=== PATIENT | female | born 1975 | race American Indian/Alaskan Native ===

== ENCOUNTER 2017-02-13 14:53 | Emergency (ER) | payer MEDICAID, OTHER ==
[2017-02-13 15:06] VITALS: BP 126/79; PULSE 76; RESP 16; TEMP 98.5; O2SAT 99
[2017-02-13] MEDS ORDERED: HYDROmorphone 0.5 mg/0.5 ml ISec IM STA (15:20)
--- NOTE | 2017-02-13 15:20 | C.PDOC ---
History Of Present Illness 41 year old female presents to the ED with complaints of exacerbated bilateral lower back pain for two and a half weeks with onset following a slip and fall on the floor. Pain is exacerbated by movement and radiates to right buttock. Patient notes a history of sciatica and prior admission for the same complaints. She states she has followed up with neurologist and received "two shots in the back" with resolution of pain until recent fall. Time Seen by Provider: 02/13/17 15:11 Chief Complaint (Nursing): Back Pain History Per: Patient History/Exam Limitations: no limitations Onset/Duration Of Symptoms: Persistent (2 and a half weeks following slip and fall ) Current Symptoms Are (Timing): Still Present Quality Of Discomfort: "Pain" Previous Symptoms: Other (Sciatica ) Exacerbating Factor(s): Movement Recent travel outside of the [place]: No Past Medical History Reviewed: Historical Data, Nursing Documentation, Vital Signs Vital Signs: Last Vital Signs Temp 98.5 F 02/13/17 15:03 Pulse 76 02/13/17 15:03 Resp 16 02/13/17 15:03 BP 126/79 02/13/17 15:03 Pulse Ox 99 02/13/17 15:20 - Medical History PMH: Back Problems (started one month ago, work injury) Family History: States: Unknown Family Hx - Social History Hx Alcohol Use: No Hx Substance Use: No - Immunization History Hx Tetanus Toxoid Vaccination: Yes Hx Influenza Vaccination: Yes Hx Pneumococcal Vaccination: No Review Of Systems Constitutional: Negative for: Fever, Chills Cardiovascular: Negative for: Chest Pain Respiratory: Negative for: Shortness of Breath Gastrointestinal: Negative for: Vomiting Musculoskeletal: Positive for: Back Pain, Other (right buttock pain ) Physical Exam - Physical Exam Appears: Non-toxic, In Acute Distress (mild distress ) Skin: Warm, Dry Head: Atraumatic Eye(s): bilateral: Normal Inspection, PERRL, EOMI Oral Mucosa: Moist Neck: Supple Chest: Symmetrical, No Deformity Cardiovascular: Rhythm Regular Respiratory: Normal Breath Sounds, No Rhonchi, No Wheezing Back: No CVA Tenderness, No Vertebral Tenderness, Decreased ROM (limited full extension due to pain ), No Paraspinal Tenderness Extremity: Normal ROM, No Tenderness Neurological/Psych: Oriented x3, Normal Speech, Normal Cognition, Normal Cranial Nerves, Normal Motor, Normal Sensation, Normal Reflexes Gait: Steady ED Course And Treatment O2 Sat by Pulse Oximetry: 99 (room air ) Disposition Counseled Patient/Family Regarding: Diagnosis, Need For Followup, Rx Given - Disposition Referrals: YOUR,PMD [Other] Disposition: HOME/ ROUTINE Disposition Time: 15:19 Condition: IMPROVED Prescriptions: oxyCODONE/Acetaminophen [Percocet 5/325 mg Tab] 1 ea PO QID #8 tab Instructions: Sciatica (ED) Forms: Work Excuse - Clinical Impression Clinical Impression: Sciatica - Scribe Statement The provider has reviewed the documentation as recorded by the Scribe Dori Cadena All medical record entries made by the Yovannyibtereso were at my direction and personally dictated by me. I have reviewed the chart and agree that the record accurately reflects my personal performance of the history, physical exam, medical decision making, and the department course for this patient. I have also personally directed, reviewed, and agree with the discharge instructions and disposition.
== END 2017-02-13 15:29 | disposition home or self-care (01) ==
LOC: C.ER 14:53
DX: M54.31 Sciatica, right side (principal)

== ENCOUNTER 2017-06-03 09:15 | Emergency (ER) | payer MEDICAID ==
[2017-06-03 09:24] VITALS: BMI 27.3
[2017-06-03 09:29] VITALS: BP 138/93; PULSE 70; RESP 17; TEMP 98.5; O2SAT 100
[2017-06-03 09:54] LABS: RBC URINE < 1 /hpf (0-3); URINE BACTERIA RARE (<OCC); URINE BILIRUBIN NEGATIVE (NEGATIVE); URINE BLOOD 1+ (NEGATIVE); URINE COLOR Yellow (YELLOW); URINE GLUCOSE (UA) NORMAL (Normal); URINE KETONE NEGATIVE (NEGATIVE); URINE LEUKOCYTE ESTERASE NEG Leu/uL (Negative); URINE PROTEIN NEGATIVE (NEGATIVE); URINE UROBILINOGEN NORMAL mg/dL (0.2-1.0); WBC URINE 1 /hpf (0-5)
--- NOTE | 2017-06-03 10:02 | C.PDOC ---
History Of Present Illness 42 yo female come in for evaluation of lower abdominal cramping for past 2 days associated with frequent urination., Pt sts, last LMP was 04/11/17. Otherwise, pt denies fever, chills, recent illness, sore throat, CP, SOB, cough, N/V/D, melena , back pain, hematuria, vaginal irritation or discharges. Pt denies hx of ectopic . Ambulate to Ed for evaluation, not in any apparent distress. Time Seen by Provider: 06/03/17 09:27 Chief Complaint (Nursing): Abdominal Pain History Per: Patient History/Exam Limitations: no limitations Onset/Duration Of Symptoms: Days (2) Current Symptoms Are (Timing): Still Present Past Medical History Reviewed: Historical Data, Nursing Documentation, Vital Signs Vital Signs: Last Vital Signs Temp 98.5 F 06/03/17 09:25 Pulse 70 06/03/17 09:25 Resp 17 06/03/17 09:25 BP 138/93 H 06/03/17 09:25 Pulse Ox 100 06/03/17 10:10 - Medical History PMH: Back Problems (started one month ago, work injury) Family History: States: No Known Family Hx - Social History Hx Alcohol Use: No Hx Substance Use: No - Immunization History Hx Tetanus Toxoid Vaccination: Yes Hx Influenza Vaccination: Yes Hx Pneumococcal Vaccination: No Review Of Systems Except As Marked, All Systems Reviewed And Found Negative. Constitutional: Negative for: Fever, Chills ENT: Negative for: Throat Pain Cardiovascular: Negative for: Chest Pain Respiratory: Negative for: Cough, Shortness of Breath Gastrointestinal: Positive for: Abdominal Pain (Lower abdominal cramping). Negative for: Nausea, Vomiting, Diarrhea, Melena Genitourinary: Positive for: Frequency (Urinary frequency). Negative for: Hematuria, Vaginal Discharge Musculoskeletal: Negative for: Back Pain Physical Exam - Physical Exam Appears: Well, Non-toxic, No Acute Distress Skin: Normal Color, Warm, Dry, No Rash Eye(s): bilateral: PERRL Nose: No Flaring, No Discharge Oral Mucosa: Moist Throat: No Erythema, No Exudate, No Drooling Neck: Supple Cardiovascular: Rhythm Regular, No Murmur, No JVD Respiratory: No Decreased Breath Sounds, No Accessory Muscle Use, No Stridor, No Wheezing Gastrointestinal/Abdominal: Soft, Tenderness (mild spurapubic tenderness), No Distention, No Guarding, No Rebound Back: No CVA Tenderness Extremity: Normal ROM, No Pedal Edema, No Deformity Neurological/Psych: Oriented x3, Normal Speech ED Course And Treatment - Laboratory Results Urine POC: Negative O2 Sat by Pulse Oximetry: 100 (RA) Pulse Ox Interpretation: Normal Progress Note: On re-eval, pt is afebrile, hemodynamicaly stable. Non-toxic. Tolerate Po well in ED. PulseOx 100% RA. ENT: no acute findings. neck: Supple. Lungs: CTA B/L, Bs equal B/L>. CVS: (+)S1S2, reg. ABd: benign, (-) guarding, (-) rebound, (-) localized tenderness. back: (-) CVA tenderness. Preg (-). UA results review and appears normal. Pt has clinical findings c/w lower abdominal cramping,nos. Pt advised. ref. to f/u with STONE BREAKER in 2-3 days for re-eval. return to ED if any worsening or new changes. Medical Decision Making Medical Decision Making: PLAN: * HCG * Urinalysis Disposition Counseled Patient/Family Regarding: Studies Performed, Diagnosis, Need For Followup - Disposition [facility] Disposition: HOME/ ROUTINE Disposition Time: 10:04 Condition: STABLE Additional Instructions: Encourage fluids Follow up with GY In 2-3 days for re-evaluation. Return to ED if any worsening or new changes. Instructions: Abdominal Pain (ED) Forms: [employer] (Tongan) - Clinical Impression Clinical Impression: Abdominal pain - PA / SYSTEM SUPPORT DEVELOPER / Resident Statement MD/DO has reviewed & agrees with the documentation as recorded. - Scribe Statement The provider has reviewed the documentation as recorded by the Scribe Maryanne Blancas All medical record entries made by the Scribe were at my direction and personally dictated by me. I have reviewed the chart and agree that the record accurately reflects my personal performance of the history, physical exam, medical decision making, and the department course for this patient. I have also personally directed, reviewed, and agree with the discharge instructions and disposition.
== END 2017-06-03 10:15 | disposition home or self-care (01) ==
LOC: C.ER 09:15
DX: R10.9 Unspecified abdominal pain (principal)

== ENCOUNTER 2017-06-27 10:28 | Emergency (ER) | payer MEDICAID ==
[2017-06-27 10:28] VITALS: BMI 27.3
[2017-06-27 10:40] VITALS: O2SAT 100
[2017-06-27] MEDS ORDERED: Sodium Chloride 0.9% 1,000 ML IV ONE (10:55)
[2017-06-27] MEDS ORDERED: Sodium Chloride 0.9% 1,000 ML ONE (11:09)
[2017-06-27 11:20] LABS: BASO % 0.8 % (0.0-2.0); EOS # 0.1 K/uL (0.0-0.7); EOS % 1.1 % (0.0-4.0); HEMATOCRIT 32.4 % (34.0-47.0); LYMPH # 2.1 K/uL (1.0-4.3); LYMPH % 38.6 % (20.0-40.0); MEAN CELL VOLUME 82.7 fL (81.0-99.0); MEAN CORPUSCULAR HEMOGLOBIN 26.7 pg (27.0-31.0); MEAN CORPUSCULAR HGB CONC 32.3 g/dL (33.0-37.0); MEAN PLATELET VOLUME 9.1 fL (7.2-11.7); MONO # 0.4 K/uL (0.0-0.8); MONO % 7.5 % (0.0-10.0); RED CELL DISTRIBUTION WIDTH 14.4 % (11.5-14.5); WHITE BLOOD COUNT 5.4 K/uL (4.8-10.8)
[2017-06-27 11:22] LABS: ALB/GLOB RATIO 1.4 (1.0-2.1); ALKALINE PHOSPHATASE 42 U/L (38-126); ALT/SGPT 24 U/L (9-52); AST/SGOT 19 U/L (14-36); BILIRUBIN,TOTAL 0.7 mg/dL (0.2-1.3); BLOOD UREA NITROGEN 10 mg/dL (7-17); CALCIUM 8.6 mg/dl (8.6-10.4); CARBON DIOXIDE 23 mmol/L (22-30); CHLORIDE 104 mmol/L (98-107); GFR AFRICAN-AMERICAN > 60; GLUCOSE,RANDOM 76 mg/dL (65-105); POTASSIUM 3.3 mmol/L (3.6-5.2); SODIUM 137 mmol/L (132-148); TOTAL PROTEIN 7.2 g/dL (6.3-8.3)
--- NOTE | 2017-06-27 11:47 | C.PDOC ---
History Of Present Illness 42-year-old female, presents to the emergency department with complaints of feeling light-headed, that is associated with headache, that started yesterday. Patient states symptoms worsened this morning, while she was at work, resulting in her coming to the ED for evaluation. Patient notes that she started a diet two months ago, and did not have breakfast this morning, but this is typical for her. Denies nausea/vomiting, fevers, chills, chest pain, shortness of breath , weakness/numbness, change in vision/hearing, or any other associated symptoms. No other complaints at this time. Time Seen by Provider: 06/27/17 10:36 Chief Complaint (Nursing): Dizziness/Lightheaded History Per: Patient History/Exam Limitations: no limitations Onset/Duration Of Symptoms: Days Current Symptoms Are (Timing): Still Present Past Medical History Reviewed: Historical Data, Nursing Documentation, Vital Signs Vital Signs: Last Vital Signs Temp 98.5 F 06/27/17 10:37 Pulse 61 06/27/17 11:12 Resp 17 06/27/17 11:12 BP 128/81 06/27/17 11:12 Pulse Ox 100 06/27/17 12:09 - Medical History PMH: Back Problems (started one month ago, work injury) Family History: States: No Known Family Hx - Social History Hx Alcohol Use: No Hx Substance Use: No - Immunization History Hx Tetanus Toxoid Vaccination: No Hx Influenza Vaccination: No Hx Pneumococcal Vaccination: No Review Of Systems Except As Marked, All Systems Reviewed And Found Negative. Constitutional: Negative for: Fever, Chills Cardiovascular: Negative for: Chest Pain, Palpitations Respiratory: Negative for: Shortness of Breath Musculoskeletal: Negative for: Neck Pain, Back Pain Neurological: Positive for: Headache, Other (light-headed). Negative for: Weakness, Numbness Physical Exam - Physical Exam Appears: Non-toxic, No Acute Distress, Other (Mild discomfort) Skin: Warm, Dry, No Rash Head: Atraumatic, Normacephalic Eye(s): bilateral: Normal Inspection, PERRL Nose: Normal Oral Mucosa: Moist Lips: Normal Appearing Neck: Normal ROM Chest: Symmetrical Cardiovascular: Rhythm Regular, No Murmur Respiratory: Normal Breath Sounds, No Accessory Muscle Use Extremity: Normal ROM Neurological/Psych: Oriented x3, Normal Speech, Normal Cranial Nerves, Normal Motor, Normal Sensation, Other (No focal deficit) ED Course And Treatment - Laboratory Results Result Diagrams: 06/27/17 11:07 06/27/17 11:07 ECG: Interpreted By Me, Viewed By Me ECG Rhythm: Sinus Rhythm ECG Interpretation: No Acute Changes Interpretation Of ECG: Normal axis. Normal intervals. Rate From EC O2 Sat by Pulse Oximetry: 100 (on RA) Pulse Ox Interpretation: Normal Progress Note: EKG, bloodwork and UA ordered/reviewed. Patient given IVFs. Disposition Counseled Patient/Family Regarding: Studies Performed, Diagnosis, Need For Followup, Rx Given - Disposition Referrals: Иван Sheffield MD [Staff Provider] - Disposition: HOME/ ROUTINE Disposition Time: 13:05 Condition: STABLE Additional Instructions: FOLLOW UP WITH YOUR DOCTOR IN 1-2 DAYS DRINK PLENTY OF FLUIDS EAT REGULARLY USE MEDICATION UNTIL FINISHED RETURN TO ER IF SYMPTOMS WORSEN Prescriptions: Ciprofloxacin [Cipro] 1 tab PO BID #14 tab Instructions: Urinary Tract Infection in Women (ED) Forms: [employer] (Pashto) Print Language: BOLIVIAN - POA Present On Arrival: None - Clinical Impression Clinical Impression: Lightheaded, Hypokalemia, UTI (urinary tract infection) - Scribe Statement The provider has reviewed the documentation as recorded by the Scribe (Abdirahman Kang) All medical record entries made by the Scribe were at my direction and personally dictated by me. I have reviewed the chart and agree that the record accurately reflects my personal performance of the history, physical exam, medical decision making, and the department course for this patient. I have also personally directed, reviewed, and agree with the discharge instructions and disposition.
[2017-06-27 11:53] LABS: THYROID STIMULATING HORMONE 0.83 mIU/L (0.46-4.68)
[2017-06-27] MEDS ORDERED: Potassium Chloride 20 mEq ER Tab PO STA (12:16)
[2017-06-27] MEDS ORDERED: Potassium Chloride 20 mEq ER Tab PO ONE (12:21)
[2017-06-27 12:55] LABS: RBC URINE < 1 /hpf (0-3); URINE BACTERIA MANY (<OCC); URINE BILIRUBIN NEGATIVE (NEGATIVE); URINE BLOOD 1+ (NEGATIVE); URINE COLOR Yellow (YELLOW); URINE GLUCOSE (UA) NORMAL (Normal); URINE KETONE NEGATIVE (NEGATIVE); URINE LEUKOCYTE ESTERASE NEG Leu/uL (Negative); URINE PROTEIN NEGATIVE (NEGATIVE); URINE UROBILINOGEN NORMAL mg/dL (0.2-1.0)
[2017-06-27 12:58] LABS: WBC URINE 5 /hpf (0-5)
[2017-06-27 13:19] VITALS: BP 132/87; PULSE 70; RESP 20; TEMP 99.2
== END 2017-06-27 14:02 | disposition home or self-care (01) ==
LOC: C.ER 10:28
DX: R42 Dizziness and giddiness (principal); E87.6 Hypokalemia; N39.0 Urinary tract infection, site not specified
CPT/HCPCS: 80053; 81001; 82948; 84443; 84484; 84703; 85025; 96360; 99285; J7040

== ENCOUNTER 2018-01-23 11:00 | Emergency (ER) | payer MEDICAID ==
[2018-01-23 11:07] VITALS: BMI 24.3
[2018-01-23 11:10] VITALS: RESP 16; TEMP 98.9
[2018-01-23] MEDS ORDERED: Sodium Chloride 0.9% 1,000 ML IV ONE (11:40)
[2018-01-23] MEDS ORDERED: Sodium Chloride 0.9% 1,000 ML ONE (11:49)
[2018-01-23 11:54] LABS: BASO # 0.1 K/uL (0.0-0.2); BASO % 1.1 % (0.0-2.0); HEMOGLOBIN 10.5 g/dL (11.0-16.0); LYMPH # 2.2 K/uL (1.0-4.3); LYMPH % 45.5 % (20.0-40.0); MEAN CELL VOLUME 82.1 fL (81.0-99.0); MEAN CORPUSCULAR HEMOGLOBIN 27.2 pg (27.0-31.0); MEAN CORPUSCULAR HGB CONC 33.2 g/dL (33.0-37.0); MEAN PLATELET VOLUME 9.4 fL (7.2-11.7); MONO # 0.5 K/uL (0.0-0.8); MONO % 9.5 % (0.0-10.0); NEUT # 2.1 K/uL (1.8-7.0); NEUT % 42.9 % (50.0-75.0); NRBC % 0.1 % (0.0-2.0); RBC 3.85 Mil/uL (3.80-5.20); RED CELL DISTRIBUTION WIDTH 13.5 % (11.5-14.5); WHITE BLOOD COUNT 4.8 K/uL (4.8-10.8)
[2018-01-23 11:54] LABS: HCG,QUALITATIVE URINE NEGATIVE (NEGATIVE)
[2018-01-23 12:04] LABS: SQUAMOUS EPITHIAL 27 /hpf (0-5); URINE BACTERIA RARE (<OCC); URINE BILIRUBIN NEGATIVE (NEGATIVE); URINE BLOOD 3+ (NEGATIVE); URINE CLARITY Hazy (Clear); URINE COLOR Amber (YELLOW); URINE GLUCOSE (UA) NORMAL (Normal); URINE LEUKOCYTE ESTERASE NEG Leu/uL (Negative); URINE PROTEIN 1+ mg/dL (NEGATIVE); URINE UROBILINOGEN NORMAL mg/dL (0.2-1.0)
[2018-01-23 12:07] LABS: ALB/GLOB RATIO 1.2 (1.0-2.1); ALBUMIN 4.2 g/dL (3.5-5.0); ALT/SGPT 18 U/L (9-52); AST/SGOT 19 U/L (14-36); BLOOD UREA NITROGEN 11 mg/dL (7-17); CALCIUM 9.4 mg/dl (8.6-10.4); GFR AFRICAN-AMERICAN > 60; GFR NON-AFRICAN AMERICAN > 60
--- NOTE | 2018-01-23 13:53 | C.PDOC ---
History Of Present Illness 42 year old female presents to ED for evaluation of pelvic cramping since yesterday and vaginal bleeding that started today. Pt states she typically doesn 't have cramps with her period, and her vaginal bleeding is currently heavier than her typical menstrual flow. Pt thinks she may be and having miscarriage. She denies n/v/d, dysuria, vaginal discharge or concern for STDs. LMP: 12/23/17. Time Seen by Provider: 01/23/18 11:02 Chief Complaint (Nursing): Abdominal Pain History Per: Patient History/Exam Limitations: no limitations Onset/Duration Of Symptoms: Days (1) Current Symptoms Are (Timing): Still Present Severity: Mild Location Of Pain/Discomfort: Suprapubic Radiation Of Pain To:: None Quality Of Discomfort: Cramping Associated Symptoms: denies: Chest Pain, Constipation, Urinary Symptoms Exacerbating Factors: None Abnormal Vaginal Bleeding: Yes Past Medical History Reviewed: Historical Data, Nursing Documentation, Vital Signs Vital Signs: Last Vital Signs Temp 98.9 F 01/23/18 14:57 Pulse 86 01/23/18 14:57 Resp 16 01/23/18 14:57 BP 121/83 01/23/18 14:57 Pulse Ox 99 01/28/18 13:23 - Medical History PMH: Back Problems (started one month ago, work injury) Family History: States: No Known Family Hx - Social History Hx Alcohol Use: No Hx Substance Use: No - Immunization History Hx Tetanus Toxoid Vaccination: Yes Hx Influenza Vaccination: Yes Hx Pneumococcal Vaccination: No Review Of Systems Constitutional: Negative for: Fever, Chills Gastrointestinal: Negative for: Nausea, Vomiting, Diarrhea, Constipation Genitourinary: Positive for: Vaginal Bleeding, Pelvic Pain. Negative for: Dysuria, Frequency Musculoskeletal: Negative for: Back Pain Physical Exam - Physical Exam Appears: Well, Non-toxic, No Acute Distress Skin: Normal Color, Warm, Dry Eye(s): bilateral: Normal Inspection Oral Mucosa: Moist Neck: Supple Cardiovascular: Rhythm Regular Respiratory: Normal Breath Sounds, No Rales, No Rhonchi, No Wheezing Gastrointestinal/Abdominal: Bowel Sounds, Soft, Tenderness (suprapubic mild TTP , (-) McBurney's), No Guarding, No Rebound Back: No CVA Tenderness Extremity: Normal ROM Neurological/Psych: Oriented x3 ED Course And Treatment - Laboratory Results Result Diagrams: 01/23/18 11:51 01/23/18 11:51 O2 Sat by Pulse Oximetry: 99 (RA) Pulse Ox Interpretation: Normal - CT Scan/US Pelvis ultrasound Other Rad Studies (CT/US): Read By Radiologist, Radiology Report Reviewed CT/US Interpretation: Accession No. : [id number]. Patient Name / ID : VADIM QUINTANILLA / [id number]. Exam Date : 01/23/2018 13:33:24 ( Approved ). Study Comment : Sex / Age : F / 42Y. Creator : Chano Mcmullen MD. Dictator : Chano Mcmullen MD. Child Neurologist : Jinriksha Driver : Chano Mcmullen MD. Approver2 : Report Date : 01/23/2018 14:28:50. My Comment : . HISTORY: pelvic pain, bleeding , neg . COMPARISON: None available. TECHNIQUE: Transabdominal only. FINDINGS: UTERUS: Measures the uterus measures 8.6 x 4.9 x 5.7 cm. There is no uterine mass. . ENDOMETRIUM: Measures 10 mm in diameter. Unremarkable. CERVIX: No cervical abnormality identified. RIGHT OVARY: Measures 2.7 x 2.0 x 2.1 cm. No solid mass. Normal flow. LEFT OVARY: Measures 2.5 x 1.9 x 2.2 cm. No solid mass. Normal flow. FREE FLUID: No significant free fluid noted. OTHER FINDINGS: None. IMPRESSION: Unremarkable transabdominal examination. Please note that the patient refused transvaginal examination at this time. In the absence of an intrauterine gestation, ectopic cannot be excluded. Progress Note: Blood work, UA, Upreg and pelvic ultrasound ordered and reviewed. Patient given PO tylenol and IV NS bolus. Patient refused transvaginal US while up in US. Reevaluation Time: 14:50 Reassessment Condition: Improved (On reassessment, patient is resting comfortably, in no distress. On exam, abdomen is soft and nontender. Upreg and Beta quant both neg. Blood work unremarkable and transabdominal US shows normal uterus and ovaries. Patient instructed to follow up with her retort setter within 1 week, and understands she should return to ED if symptoms worsen.) Disposition Counseled Patient/Family Regarding: Studies Performed, Diagnosis, Need For Followup, Rx Given - Disposition Referrals: Иван Sheffield MD [Staff Provider] - Disposition: HOME/ ROUTINE Disposition Time: 14:50 Condition: STABLE Additional Instructions: FOLLOW UP WITH SUPPLY CHAIN LOGISTICS MANAGER WITHIN 1 WEEK USE MEDICATION NEEDED RETURN TO ER IF SYMPTOMS WORSEN Prescriptions: Acetaminophen [Tylenol 325mg tab] 650 mg PO Q6 PRN #30 tab PRN Reason: pain/fever Instructions: Menstrual Cramps (DC) Forms: [employer] (Yi) Print Language: HEBREW - Clinical Impression Clinical Impression: Dysmenorrhea - Scribe Statement The provider has reviewed the documentation as recorded by the Yovannyibtereso Preston All medical record entries made by the Yovannyibtereso were at my direction and personally dictated by me. I have reviewed the chart and agree that the record accurately reflects my personal performance of the history, physical exam, medical decision making, and the department course for this patient. I have also personally directed, reviewed, and agree with the discharge instructions and disposition.
--- NOTE | 2018-01-23 14:30 | US ---
HISTORY: pelvic pain, bleeding , neg COMPARISON: None available. TECHNIQUE: Transabdominal only FINDINGS: UTERUS: Measures the uterus measures 8.6 x 4.9 x 5.7 cm. There is no uterine mass. . ENDOMETRIUM: Measures 10 mm in diameter. Unremarkable. CERVIX: No cervical abnormality identified. RIGHT OVARY: Measures 2.7 x 2.0 x 2.1 cm. No solid mass. Normal flow. LEFT OVARY: Measures 2.5 x 1.9 x 2.2 cm. No solid mass. Normal flow. FREE FLUID: No significant free fluid noted. OTHER FINDINGS: None. IMPRESSION: Unremarkable transabdominal examination. Please note that the patient refused transvaginal examination at this time. In the absence of an intrauterine gestation, ectopic cannot be excluded.
[2018-01-23 14:58] VITALS: BP 121/83; PULSE 86
[2018-01-23 15:30] VITALS: O2SAT 99
== END 2018-01-23 14:58 | disposition home or self-care (01) ==
LOC: C.ER 11:00
DX: N94.6 Dysmenorrhea, unspecified (principal)
CPT/HCPCS: 76856; 80053; 81001; 84702; 84703; 85025; 96360; 99285; J7030

== ENCOUNTER 2018-02-27 12:42 | Emergency (ER) | payer MEDICAID ==
[2018-02-27 12:42] VITALS: BMI 24.3
[2018-02-27 13:07] VITALS: BP 122/86; PULSE 96; TEMP 98.8; O2SAT 97
[2018-02-27 13:23] LABS: HCG,QUALITATIVE URINE NEGATIVE (NEGATIVE)
[2018-02-27 13:25] LABS: SQUAMOUS EPITHIAL 2 /hpf (0-5); URINE BILIRUBIN NEGATIVE (NEGATIVE); URINE BLOOD NEGATIVE (NEGATIVE); URINE CLARITY Clear (Clear); URINE COLOR Yellow (YELLOW); URINE GLUCOSE (UA) NORMAL (Normal); URINE LEUKOCYTE ESTERASE NEG Leu/uL (Negative); URINE PROTEIN 1+ mg/dL (NEGATIVE); URINE UROBILINOGEN NORMAL mg/dL (0.2-1.0)
--- NOTE | 2018-02-27 13:30 | C.PDOC ---
History Of Present Illness 42 year old female presents to the ED complaining of pelvic pain "muscle strain " radiating down her thighs that began on 02/09/18. Patient states pain is worse with movement. 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 Patient reports taking Motrin with transient relief. She denies any back pain, sensory changes, weakness, numbness, fever, vaginal discharge or bleeding, dysuria, or STD concerns. Time Seen by Provider: 02/27/18 12:57 Chief Complaint (Nursing): Female Genitourinary History Per: Patient History/Exam Limitations: no limitations Onset/Duration Of Symptoms: Days Current Symptoms Are (Timing): Still Present Severity: Moderate Past Medical History Reviewed: Historical Data, Nursing Documentation, Vital Signs Vital Signs: Last Vital Signs Temp 98.8 F 02/27/18 12:49 Pulse 96 H 02/27/18 12:49 Resp 16 02/27/18 13:44 BP 122/86 02/27/18 12:49 Pulse Ox 97 02/27/18 14:03 - Medical History PMH: Back Problems (started one month ago, work injury) Denies: Chronic Kidney Disease Surgical History: No Surg Hx Family History: States: No Known Family Hx - Social History Hx Alcohol Use: No Hx Substance Use: No - Immunization History Hx Tetanus Toxoid Vaccination: Yes Hx Influenza Vaccination: Yes Hx Pneumococcal Vaccination: No Review Of Systems Except As Marked, All Systems Reviewed And Found Negative. Constitutional: Negative for: Fever, Chills Genitourinary: Positive for: Pelvic Pain. Negative for: Dysuria, Vaginal Discharge, Vaginal Bleeding Musculoskeletal: Negative for: Back Pain Neurological: Negative for: Weakness, Numbness Physical Exam - Physical Exam Appears: Non-toxic, No Acute Distress Skin: Normal Color, Warm, Dry Head: Atraumatic, Normacephalic Eye(s): bilateral: Normal Inspection, EOMI Nose: Normal Oral Mucosa: Moist Neck: Normal ROM, Supple Chest: Symmetrical Cardiovascular: Rhythm Regular Respiratory: Normal Breath Sounds, No Accessory Muscle Use, Other (Speaking full sentences) Gastrointestinal/Abdominal: Soft, Tenderness (suprapubic tenderness) Back: No CVA Tenderness, No Vertebral Tenderness Extremity: Normal ROM, Tenderness (Diffused tenderness to anterior thighs), No Pedal Edema, No Calf Tenderness, Capillary Refill (< 2 sec to B/L thighs ), No Deformity, No Swelling Neurological/Psych: Oriented x3, Normal Speech ED Course And Treatment O2 Sat by Pulse Oximetry: 97 Progress Note: Pt was offered work up. Pt notes she was seen at [facility] already and had work up . Also notes she had negative US here a ew weeks ago. Requests musle relaxer. Instructed to follow up with PMD in 1-2 days. Disposition - Disposition Disposition: HOME/ ROUTINE Disposition Time: 13:30 Condition: STABLE Additional Instructions: Follow up with your primary medical doctor or clinic in 2-3 days for further evaluation. Return to the emergency department at any time if symptoms persist or worsen. Prescriptions: Cyclobenzaprine [Cyclobenzaprine HCl] 10 mg PO TID #20 tab Instructions: Muscle Strain (DC) Forms: Work/School/Gym Excuse, [employer] (Spanish) - Clinical Impression Clinical Impression: Muscle strain - PA / SAFETY EQUIPMENT TESTING SPECIALIST / Resident Statement MD/DO has reviewed & agrees with the documentation as recorded. - Scribe Statement The provider has reviewed the documentation as recorded by the Scribe Jacklyn Best All medical record entries made by the Rob were at my direction and personally dictated by me. I have reviewed the chart and agree that the record accurately reflects my personal performance of the history, physical exam, medical decision making, and the department course for this patient. I have also personally directed, reviewed, and agree with the discharge instructions and disposition.
[2018-02-27 13:45] VITALS: RESP 16
== END 2018-02-27 13:44 | disposition home or self-care (01) ==
LOC: C.ER 12:42
DX: S39.013A Strain of muscle, fascia and tendon of pelvis, initial encounter (principal); X58.XXXA Exposure to other specified factors, initial encounter
CPT/HCPCS: 81001; 84703; 87086; 96372; 99284; J1885